=== PATIENT | female | born 1955 | race Caucasian/White ===

== ENCOUNTER 2019-07-11 16:18 | Emergency (ER) | payer OTHER ==
[~2019-07-11] VITALS: Ht 152.4 cm; Wt 78.2 kg
[2019-07-11 16:43] VITALS: BP 141/82
== END 2019-07-11 17:03 | disposition home or self-care (01) ==
LOC: EMS 16:18
DX: Z03.818 Encounter for observation for suspected exposure to other biological agents ruled out (principal); J45.909 Unspecified asthma, uncomplicated; Z90.710 Acquired absence of both cervix and uterus; Z90.89 Acquired absence of other organs
CPT/HCPCS: 99283; U0003

== ENCOUNTER 2019-07-16 06:53 | Day surgery (SDC) | payer OTHER ==
[~2019-07-16] VITALS: Ht 152.4 cm; Wt 80.5 kg
[2019-07-16] MEDS ORDERED: SODIUM CHLORIDE 0.9% 1,000 ML IV ONE (07:30)
[2019-07-16] MEDS ORDERED: MIDAZOLAM HCL 2 MG/2 ML VIAL ONE (07:52)
[2019-07-16] MEDS ORDERED: FentaNYL CITRATE-PF 100 MCG/2 ML VIAL ONE (07:52)
[2019-07-16] MEDS ORDERED: CALC-1038 PO (08:00)
[2019-07-16] MEDS ORDERED: HYDR-3709 PO (08:00)
[2019-07-16] MEDS ORDERED: CHOL400T56 PO (08:00)
[2019-07-16] MEDS ORDERED: ASPI-728 PO (08:00)
[2019-07-16] MEDS ORDERED: IPRA4AER IH (08:00)
[2019-07-16] MEDS ORDERED: MULT-1203 PO (08:00)
[2019-07-16] MEDS ORDERED: MethylPREDNISolone SOD SUCC 125 MG/2 ML VIAL IVP ONE (08:30)
[2019-07-16] MEDS ORDERED: MethylPREDNISolone SOD SUCC 125 MG/2 ML VIAL ONE (08:38)
[2019-07-16] MEDS ORDERED: LIDOCAINE 2% 30 ML JELLY TP ONE (17:04)
[2019-07-16] MEDS ORDERED: BENZOCAINE 20% 50 MCG/SPRAY 57 GM TP ONE (17:04)
[2019-07-16] MEDS ORDERED: LIDOCAINE 4% 50 ML SOLUTION TP ONE (17:04)
[2019-07-16] MEDS ORDERED: OXYGEN THERAPY IH SCH (20:00)
== END 2019-07-16 10:10 | disposition home or self-care (01) ==
LOC: SDS 06:53
PROVIDERS: ATTEND Internal Medicine Critical Care Medicine
DX: R05 Cough (principal); R91.1 Solitary pulmonary nodule; J34.89 Other specified disorders of nose and nasal sinuses; J98.8 Other specified respiratory disorders; J38.4 Edema of larynx; B37.0 Candidal stomatitis; J45.909 Unspecified asthma, uncomplicated; M19.90 Unspecified osteoarthritis, unspecified site; Z90.710 Acquired absence of both cervix and uterus; Z98.1 Arthrodesis status; Z90.49 Acquired absence of other specified parts of digestive tract; Z88.5 Allergy status to narcotic agent; Z79.899 Other long term (current) drug therapy
CPT/HCPCS: 31623; 31624; 71045; 87070; 87101; 87206; 87220; 88108; 88312; J2250; J2930; J3010; 87015; 87205